=== PATIENT | male | born 1990 | race Caucasian/White ===

== ENCOUNTER 2016-10-31 22:19 | Emergency (ER) | payer OTHER ==
[~2016-10-31] VITALS: Ht 177.8 cm; Wt 55.4 kg
[~2016-10-31 22:19] MED LIST: ALBU1AER9 INH; AMIT50TA3 PO; CITA40TA4 PO; DIVA500T59 PO; MXL10 PO; PRLSR20 PO; RISP-99 PO; TRAZ100T29 PO
[2016-10-31 22:22] VITALS: Ht 177.8 cm; Wt 55.4 kg
[2016-10-31] MEDS ORDERED: SODIUM CHLORIDE 0.9% 1000ML 1,000 ML IV STA ×2 (22:34)
[2016-10-31] MEDS ORDERED: ONDANSETRON INJ 2 MG/ML 2 ML VIAL IV STA (22:34)
[2016-10-31] MEDS ORDERED: MoRPHine SULFATE 4 MG/ML 1 ML CARP\\VIAL IV STA (22:34)
[2016-10-31 22:37] VITALS: O2SAT 100
[2016-10-31 22:46] LABS: BASO % 0.3 %; BASO ABS # 0.03 K/uL (0-0.2); COMPLETE YES; EOS % 2.1 %; HEMATOCRIT 40.8 % (42-52); IG% 0.1 %; LYMPH % 47.4 %; LYMPH ABS # 4.15 K/uL (1.2-3.4); MEAN CELL VOLUME 87.6 fL (80-100); MEAN CORPUSCULAR HEMOGLOBIN 30.5 pg (25-34); MEAN CORPUSCULAR HGB CONC 34.8 g/dl (32-36); MEAN PLATELET VOLUME 9.7 fL (7.4-10.4); NEUT % 43.1 %; PLATELET COUNT 248 K/uL (130-400); RED BLOOD COUNT 4.66 M/uL (4.7-6.1); WHITE BLOOD COUNT 8.76 K/uL (4.8-10.8)
[2016-10-31] MEDS ORDERED: EFFSR75 PO (22:58)
[2016-10-31] MEDS ORDERED: PRVHFAIN INH (22:58)
[2016-10-31] MEDS ORDERED: ONDA4TAB9 PO (22:58)
[2016-10-31 23:04] LABS: ALT/SGPT 17 U/L (12-78); AST/SGOT 9 U/L (15-37); BLOOD UREA NITROGEN 13 mg/dl (7-18); BUN/CREATININE RATIO 15.8 (10-20); CALCIUM 8.7 mg/dl (8.5-10.1); CARBON DIOXIDE 30 mmol/L (21-32); CHLORIDE 106 mmol/L (98-107); CREATININE 0.85 mg/dl (0.60-1.40); GLUCOSE 84 mg/dl (70-99); MAGNESIUM 2.1 mg/dl (1.8-2.4); POTASSIUM 3.7 mmol/L (3.5-5.1); SODIUM 146 mmol/L (136-145)
[2016-10-31 23:08] LABS: ALKALINE PHOSPHATASE 48 U/L (45-117)
[2016-10-31 23:37] LABS: URINE APPEARANCE CLEAR (CLEAR); URINE BILIRUBIN NEG (NEG); URINE COLOR YELLOW; URINE NITRITE NEG (NEG); URINE PH 7.5 (4.5-7.5); URINE SPECIFIC GRAVITY 1.027 (1.000-1.030); UROBILINOGEN NEG (NEG); ZZUR CULT IF INDIC CLEAN CATCH NO
[2016-10-31 23:56] LABS: MANUAL MICROSCOPIC REQUIRED? NO; REVIEW REQ? NO
[2016-11-01] MEDS ORDERED: OPTIRAY 320 IV PRN (00:30)
[2016-11-01] MEDS ORDERED: ONDANSETRON HOME PACK 4MG OD TAB PO ONE (01:15)
[2016-11-01] MEDS ORDERED: KETOROLAC TROMETHAMINE 30 MG/ML VIAL IV STA (01:26)
--- NOTE | 2016-11-01 01:31 | EMERGENCY ROOM VISIT NOTE ---
History First contact with patient: 22:30 Chief Complaint: ABDOMINAL PAIN Stated Complaint: SEVERE ABDOMINAL PAIN, STARTING TO EFFECT BACK Nursing Triage Summary: Patient c/o of abdominal pain x 5 days, nausea and constipation x 1 day. History of Present Illness The patient is a 26 year old male who presents to the Emergency Room with complaints of nausea and abdominal pain for the past 5 days. Patient has a family history of gastric carcinoma and colon carcinoma. Patient states he had a colonoscopy 5 years ago that showed some benign polyps. He had a negative endoscopy 5 years ago. He follows at [facility]. He has not followed up since. Patient states he is worried that he has cancer. Patient has had aching, ranging in severity 8 out of 10 to the lower abdomen. It does not radiate. Nothing makes it better or worse. Patient denies chest, dyspnea, fever, night sweats, weight loss, rectal pain, penile pain, testicular pain. Review of Systems See HPI for pertinent positives & negatives. A total of 10 systems reviewed and were otherwise negative. Past Medical/Surgical History Medical Problems: (1) Asthma (2) Bronchitis (3) Migraines Surgical Problems: (1) History of esophagogastroduodenoscopy (2) History of oral surgery Family History FHx: cancer FHx: diabetes FHx: hypertension Social History Smoking Status: Current Every Day Smoker Alcohol Use: none Marital Status: single Housing Status: lives with family Occupation Status: employed Current/Historical Medications Scheduled Venlafaxine Hcl (Effexor Extended Rel), 75 MG PO DAILY Scheduled PRN Albuterol (Ventolin Hfa), 2 PUFFS INH Q4H PRN for SOB/Wheezing Ondansetron (Ondansetron HCl), 4 MG PO Q6H PRN for Nausea Allergies Coded Allergies: Topiramate (Verified Allergy, Severe, HEAVY CHEST PAIN,TINGLING IN EXTREMITIES, 12/08/14) Tramadol (Verified Allergy, Severe, HEAVY CHEST PAIN, TINGLING IN ARMS, LEGS, & EYES, 12/08/14) Sulfa Drugs (Verified Allergy, Unknown, UNKNOWN - RX WHEN PATIENT WAS AN INFANT, 04/25/14) Physical Exam Vital Signs Date Time Temp Pulse Resp B/P Pulse Ox O2 Delivery O2 Flow Rate FiO2 11/01/16 00:03 62 18 121/78 100 Room Air 10/31/16 22:37 100 Room Air 10/31/16 22:22 36.7 77 18 127/87 100 Room Air Physical Exam VITALS: Vitals are noted on the nurse's note and reviewed by myself. Vital signs stable. GENERAL: Pleasant male, in no acute distress, nondiaphoretic, well-developed well-nourished. SKIN: The skin was without rashes, erythema, edema, or bruising. There is no tenting of the skin. Capillary reflex less than 2 seconds. HEAD: Normocephalic atraumatic. EARS: External auditory canals clear, tympanic membranes pearly sommer without erythema or effusion bilaterally. EYES: Pupils equal round and reactive to light and accommodation. Conjunctivae without injection, sclerae without icterus. Extraocular movements intact. NOSE: Patent, turbinates without inflammation or discharge. MOUTH: Mucous membranes moist. Pharynx without erythema or exudate. Uvula midline. Airway patent. Tongue does not deviate. NECK: Supple without nuchal rigidity. No lymphadenopathy. No thyromegaly. Cervical spine is nontender. No JVD. HEART: Regular rate and rhythm without murmurs gallops or rubs. LUNGS: Clear to auscultation bilaterally without wheezes, rales or rhonchi. No dullness to percussion. No retractions or accessory muscle use. ABDOMEN: Positive bowel sounds x 4. Normal tympanic percussion. Soft, tender to palpation lower abdomen, no CVA tenderness, without masses or organomegaly. Sparrow sign negative. No guarding or rebound tenderness. MUSCULOSKELETAL: No muscle atrophy, erythema, or edema noted. NEURO: Patient was alert and oriented to person place and time. Normal sensation to light and sharp touch. No focal neurological deficits. Medical Decision & Procedures Laboratory Results 10/31/16 22:30 Red Blood Count 4.66, Mean Corpuscular Volume 87.6, Mean Corpuscular Hemoglobin 30.5, Mean Corpuscular Hemoglobin Concent 34.8, Mean Platelet Volume 9.7, Neutrophils (%) (Auto) 43.1, Lymphocytes (%) (Auto) 47.4, Monocytes (%) (Auto) 7.0, Eosinophils (%) (Auto) 2.1, Basophils (%) (Auto) 0.3, Neutrophils # (Auto) 3.78, Lymphocytes # (Auto) 4.15, Monocytes # (Auto) 0.61, Eosinophils # (Auto) 0.18, Basophils # (Auto) 0.03 10/31/16 22:30 Test 10/31/16 22:30 10/31/16 23:22 White Blood Count 8.76 K/uL (4.8-10.8) Red Blood Count 4.66 M/uL (4.7-6.1) Hemoglobin 14.2 g/dL (14.0-18.0) Hematocrit 40.8 % (42-52) Mean Corpuscular Volume 87.6 fL (80-100) Mean Corpuscular Hemoglobin 30.5 pg (25-34) Mean Corpuscular Hemoglobin Concent 34.8 g/dl (32-36) Platelet Count 248 K/uL (130-400) Mean Platelet Volume 9.7 fL (7.4-10.4) Neutrophils (%) (Auto) 43.1 % Lymphocytes (%) (Auto) 47.4 % Monocytes (%) (Auto) 7.0 % Eosinophils (%) (Auto) 2.1 % Basophils (%) (Auto) 0.3 % Neutrophils # (Auto) 3.78 K/uL (1.4-6.5) Lymphocytes # (Auto) 4.15 K/uL (1.2-3.4) Monocytes # (Auto) 0.61 K/uL (0.11-0.59) Eosinophils # (Auto) 0.18 K/uL (0-0.5) Basophils # (Auto) 0.03 K/uL (0-0.2) RDW Standard Deviation 39.8 fL (36.4-46.3) RDW Coefficient of Variation 12.5 % (11.5-14.5) Immature Granulocyte % (Auto) 0.1 % Immature Granulocyte # (Auto) 0.01 K/uL (0.00-0.02) Anion Gap 10.0 mmol/L (3-11) Est Creatinine Clear Calc Drug Dose 105.0 ml/min Estimated GFR () 141.3 Estimated GFR (Non- 122.0 BUN/Creatinine Ratio 15.8 (10-20) Calcium Level 8.7 mg/dl (8.5-10.1) Magnesium Level 2.1 mg/dl (1.8-2.4) Total Bilirubin 0.3 mg/dl (0.2-1) Direct Bilirubin < 0.1 mg/dl (0-0.2) Aspartate Amino Transf (AST/SGOT) 9 U/L (15-37) Alanine Aminotransferase (ALT/SGPT) 17 U/L (12-78) Alkaline Phosphatase 48 U/L (45-117) Total Protein 7.2 gm/dl (6.4-8.2) Albumin 4.3 gm/dl (3.4-5.0) Lipase 64 U/L (73-393) Urine Color YELLOW Urine Appearance CLEAR (CLEAR) Urine pH 7.5 (4.5-7.5) Urine Specific Elizabeth 1.027 (1.000-1.030) Urine Protein NEG (NEG) Urine Glucose (UA) NEG (NEG) Urine Ketones NEG (NEG) Urine Occult Blood NEG (NEG) Urine Nitrite NEG (NEG) Urine Bilirubin NEG (NEG) Urine Urobilinogen NEG (NEG) Urine Leukocyte Esterase NEG (NEG) Medications Administered Medications (Trade) Dose Ordered Sig/Rubi Route Start Time Stop Time Status Last Admin Dose Admin Ondansetron HCl (Zofran Inj) 4 mg NOW STAT IV 10/31/16 22:34 10/31/16 22:36 DC 10/31/16 22:54 4 MG Morphine Sulfate 4 mg 4 mg NOW STAT IV 10/31/16 22:34 10/31/16 22:36 DC 10/31/16 22:54 4 MG Sodium Chloride 1,000 ml @ 999 mls/hr Q1H1M STAT IV 10/31/16 22:34 10/31/16 23:34 DC 10/31/16 22:53 999 MLS/HR Sodium Chloride (Nss 1000ml) 1,000 ml @ 200 mls/hr Q5H STAT IV 10/31/16 22:34 11/01/16 03:33 10/31/16 22:54 200 MLS/HR Ondansetron HCl (ZOFRAN ODT 4MG Home Pack) 1 homepack UD ONCE PO 11/01/16 01:15 11/01/16 01:16 DC 11/01/16 01:25 1 HOMEPACK ED Course Prior records/ancillary studies reviewed. Triage Nursing notes reviewed. Additional history obtained from boyfriend. The patient's history was concerning for abdominal pain. Differential diagnosis: Etiologies such as appendicitis, diverticulitis, PUD, biliary pathology, UTI, pancreatitis, obstruction, mesenteric ischemia, aortic pathology, infections, inflammatory bowel disease, renal colic, as well as others were entertained. Physical examination findings: As above. ER treatment provided: Morphine, Zofran, IV fluids On reassessment the patient felt better. Diagnostics interpreted by me: The labs revealed no worrisome leukocytosis or left slight abnormality Imaging studies: CT was read by stat radiology with no evidence of appendicitis or colitis. Exam and history seem consistent with abdominal pain with unclear etiology. Patient does suffer from IBS. This could be a flare of this. Patient had a negative CT scan. He was strongly encouraged to follow-up with GI for repeat colonoscopy and endoscopy. He was advised return to the immediate for abdominal pain, fevers, vomiting, worsening signs or symptoms or as needed. No leukocytosis. Stable H&H. Patient denied any testicular penile pain. No rectal pain.By the evaluation outlined above emergent etiologies such as appendicitis, diverticulitis, PUD, biliary pathology, UTI, pancreatitis, obstruction, mesenteric ischemia, aortic pathology, infections, inflammatory bowel disease, renal colic, as well as others were deemed relatively unlikely. The pt informed about the findings as listed above. All questions were answered and pleased with the treatment. Return instructions were outlined and the patient was discharged in stable condition. Referral: The patient was referred back to their primary care physician and GI for follow- up in 2 to 3 days for a recheck of the current condition. Case reviewed with my attending Medical Decision As above Impression Primary Impression: Lower abdominal pain Departure Information Dispostion Home / Self-Care Condition GOOD Forms HOME CARE DOCUMENTATION FORM, Work Instructions, Return To Work: 1 day IMPORTANT VISIT INFORMATION Patient Instructions Abdominal Pain - [facility], [facility] Additional Instructions Recommended to get an endoscopy and colonoscopy for your family history of gastric carcinoma and colon carcinoma. Ibuprofen(Motrin, Advil) may be used for fever or pain. Use 600mg every six hours as needed. Take with food. Avoid using more than 2400mg in a 24 hour period. Do not use 2400mg per day for more than three consecutive days without physician direction. Prolonged inappropriate use can lead to stomach upset or ulcers. (AND/OR) Acetaminophen(Tylenol) may be used for fever or pain. Use 1000mg every six hours as needed. Avoid using more than 3000mg in a 24 hour period. Rest and drink plenty of fluids as tolerated. Continue current medications. Avoid strenuous activities and anything that worsens your pain. Resume normal activities once your symptoms resolve. Return to the ER immediately for worsening or persistent abdominal pain, vomiting, fevers, chest pains, difficulty breathing, worsening of your condition , or as needed. Follow up with your primary physician in 2-3 days for a recheck of your current condition. Work Instructions Return To Work: 1 day
[2016-11-01 01:44] VITALS: BP 121/78; PULSE 66; TEMP 36.7; O2SAT 100
--- NOTE | 2016-11-01 06:54 | DIAGNOSTIC IMAGING REPORT ---
ABDOMEN AND PELVIS CT WITH IV AND ORAL CONTRAST CT DOSE: 267.96 mGy.cm HISTORY: Pain lower abd pain TECHNIQUE: Multiaxial CT images of the abdomen and pelvis were performed following the use of intravenous and oral contrast. COMPARISON STUDY: 03/01/2014 FINDINGS: Lung bases are clear. Liver spleen and pancreas enhance uniformly. Kidneys negative for necrosis. There is Renal pelvis on the left kidney unchanged in the prior study. Bowel pattern is considered nonobstructive. IMPRESSION: No significant abnormality identified within the abdomen or pelvis. Electronically signed by: Salvatore Wilkinson M.D. 11/01/2016 6:53 AM Dictated Date/Time: 11/01/2016 6:51 AM
== END 2016-11-01 01:44 | disposition home or self-care (01) ==
LOC: C.EDB 22:20 → C.EDC 11-01 01:44
DX: R10.30 Lower abdominal pain, unspecified (principal); R11.0 Nausea; J45.909 Unspecified asthma, uncomplicated; F17.200 Nicotine dependence, unspecified, uncomplicated; Z86.010 Personal history of colon polyps; Z80.0 Family history of malignant neoplasm of digestive organs; Z83.3 Family history of diabetes mellitus; Z82.49 Family history of ischemic heart disease and other diseases of the circulatory system

== ENCOUNTER 2017-11-16 14:19 | Emergency (ER) | payer OTHER ==
[~2017-11-16] VITALS: Ht 172.7 cm; Wt 58.0 kg
[~2017-11-16 14:19] MED LIST changes: -ALBU1AER9 INH; -AMIT50TA3 PO; -CITA40TA4 PO; -DIVA500T59 PO; +EFFSR75 PO; -MXL10 PO; +ONDA4TAB9 PO; -PRLSR20 PO; -RISP-99 PO; -TRAZ100T29 PO
[2017-11-16 14:21] VITALS: Ht 172.7 cm; Wt 58.0 kg
[2017-11-16] MEDS ORDERED: FLX10 PO (15:04)
[2017-11-16] MEDS ORDERED: MTR800 PO (15:04)
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
[2017-11-16] MEDS ORDERED: DICL1GEL12 TOP (15:23)
[2017-11-16 15:30] VITALS: BP 137/98; PULSE 100; TEMP 36.9; O2SAT 100
[2017-11-16] MEDS ORDERED: PRVHFAIN INH (22:58)
== END 2017-11-16 15:31 | disposition home or self-care (01) ==
LOC: C.EDB 14:20 → C.EDD 15:31
DX: M54.2 Cervicalgia (principal); F17.200 Nicotine dependence, unspecified, uncomplicated; J45.909 Unspecified asthma, uncomplicated